=== PATIENT | male | born 1960 | race Asian ===

== ENCOUNTER 2019-01-07 18:43 | Emergency (ER) | payer OTHER ==
[~2019-01-07] VITALS: Ht 170.2 cm; Wt 54.4 kg
[2019-01-07 19:39] VITALS: BP 120/80
[2019-01-07] MEDS ORDERED: LIDOCAINE 1% HCL (LOCAL ANESTH.) INJ 20ML MDV IJ ONE (20:00)
[2019-01-07] MEDS ORDERED: TETANUS-DIPTH-ACEL PERTUSSIS 0.5ML SYRG IM ONE (20:00)
[2019-01-07] MEDS ORDERED: BACITRACIN TOP OINT 1 UD PKG TOP ONE (20:00)
== END 2019-01-07 21:57 | disposition home or self-care (01) ==
LOC: ER 18:43
DX: S61.213A Laceration without foreign body of left middle finger without damage to nail, initial encounter (principal); W25.XXXA Contact with sharp glass, initial encounter; Y93.G1 Activity, food preparation and clean up; Y99.8 Other external cause status; Y92.89 Other specified places as the place of occurrence of the external cause
CPT/HCPCS: 12001; 73140; 90471; 90715; 99283; J2001